=== PATIENT | female | born 1980 | race Caucasian/White ===

== ENCOUNTER 2017-09-17 13:37 | Emergency (ER) | payer BC ==
[~2017-09-17] VITALS: Ht 160 cm; Wt 66.0 kg
[2017-09-17 13:38] VITALS: BP 155/90; PULSE 76; RESP 16; TEMP 99; O2SAT 100
[2017-09-17] MEDS ORDERED: CYCLOBENZAPRINE HCL 10 MG TAB PO ONE (15:15)
[2017-09-17] MEDS ORDERED: ACETAMINOPHEN/HYDROcodone 325 MG/5 MG TAB PO ONE (15:15)
--- NOTE | 2017-09-17 16:15 | PD ---
HPI Chief Complaint: Pain: Acute or Chronic Time Seen by Provider: 15:02 Travel History International Travel<30 days: No Contact w/Intl Traveler<30days: No Traveled to known affect area: No History of Present Illness HPI Patient is a 36-year-old female who comes in complaining of leg pain. She says she has had pain in her legs for the past 6 months. She has been seeing her doctor for this who is prescribed gabapentin as well as tramadol. She has been taking this, but she says the pain got worse. She did see her doctor today who referred her to neurology. She has an appointment with neurology September 23. She said the pain got worse however after the appointment, so she came in. She says the pain goes up into her groin. She denies any tingling sensation. She denies swelling of her legs. She denies fever or chills or any injury. She had an MRI done that showed no acute abnormalities. [facility] Past Medical History Medical History: Denies Significant Hx ?: Not LMP: SEP 01 2015 Past Surgical History Surgical History: No Previous Surgery Social History Alcohol Use: No Tobacco Use: No Substance Use: No Allergies-Medications (Allergen,Severity, Reaction): Coded Allergies: Penicillins (Verified Allergy, Severe, Hives, 09/17/17) Review of Systems General / Constitutional: No: Fever, Chills HENT: No: Headaches, Lightheadedness Cardiovascular: No: Chest Pain or Discomfort Respiratory: No: Shortness of Breath Gastrointestinal: No: Nausea, Vomiting Genitourinary: No: Dysuria Musculoskeletal: Positive: Pain, No: Edema Skin: No Rash, No Change in Pigmentation Neurologic: No: Weakness, Dizziness Physical Exam Narrative GENERAL: awake and alert, in no acute distress. SKIN: Focused skin assessment warm/dry. HEAD: Atraumatic. Normocephalic. EYES: Pupils equal and round. No scleral icterus. ENT: Mucous membranes pink and moist. CARDIOVASCULAR: Regular rate and rhythm. No murmur appreciated. RESPIRATORY: No accessory muscle use. Clear to auscultation. Breath sounds equal bilaterally. MUSCULOSKELETAL: No obvious deformities. No clubbing. No cyanosis. No edema. Pedal pulses intact. NEUROLOGICAL: Awake and alert. No obvious cranial nerve deficits. Motor grossly within normal limits. Normal speech. Data Data Last Documented VS Vital Signs Date Time Temp Pulse Resp B/P (MAP) Pulse Ox O2 Delivery O2 Flow Rate FiO2 09/17/17 13:38 99.0 76 16 155/90 (111) 100 Room Air Orders Orders Cyclobenzaprine (Flexeril) (09/17/17 15:15) Acetamin-Hydrocod 325-5 Mg ([place] 5-325 (09/17/17 15:15) MDM Medical Decision Making Medical Screen Exam Complete: Yes Emergency Medical Condition: Yes Differential Diagnosis muscle pain vs neuropathy vs chronic pain Narrative Course Patient is a 36-year-old female who comes in complaining of leg pain. She has history of chronic leg pain for the past 6 months. Exam shows no acute abnormalities. She is given pain medicine here. Advised to continue the plan with her primary physician. Advised to return to the ED as needed for any worsening symptoms. Diagnosis Primary Impression: Leg pain Qualified Codes: M79.604 - Pain in right leg; M79.605 - Pain in left leg Patient Instructions: General Instructions, Leg Pain (ED) Additional Instructions: Follow up with your doctors. Take pain medicine as needed. Return to the ED as needed for any worsening symptoms. Scripts Hydrocodone-Acetaminophen ([place]) 5 Mg-325 Mg Tab 1 TAB PO Q6H Y for PAIN, #10 TAB 0 Refills Prov: Diamond Key MD 09/17/17 Disposition: 01 DISCHARGE HOME Condition: Stable Diamond Key MD Sep 17, 2017 16:15
[2017-09-17] MEDS ORDERED: ADDE30TA PO (16:34)
[2017-09-17] MEDS ORDERED: GABA300C5 PO (16:34)
[2017-09-17] MEDS ORDERED: SERT-129 PO (16:34)
[2017-09-17] MEDS ORDERED: HYDR200T3 PO (16:34)
[2017-09-17] MEDS ORDERED: IBUP1TAB7 PO (16:34)
[2017-09-17] MEDS ORDERED: TRAM50TA PO (16:34)
[2017-09-17] MEDS ORDERED: NORC5TAB PO (16:35)
== END 2017-09-17 16:59 | disposition home or self-care (01) ==
LOC: NEPD 13:37
DX: M79.604 Pain in right leg (principal); M79.605 Pain in left leg
CPT/HCPCS: 99283